=== PATIENT | female | born 1950 | race Caucasian/White ===

== ENCOUNTER 2025-01-29 16:20 | Inpatient (IN) | payer MEDICARE, MEDICAID ==
[~2025-01-29] VITALS: Ht 167.6 cm; Wt 60.0 kg
--- NOTE | 2025-01-29 16:37 | Physician Documentation ---
History of Present Illness General Chief Complaint: Weakness Stated Complaint: ALOC Time Seen by MD: 16:36 Primary Medical Doctor: Dr. Flores History of Present Illness Initial Comments The patient is a 74-year-old female who states she fell in the past and she has become weak and slightly short of breath, the patient was brought in EM by EMS who states that the patient has had three weeks of cognitive decline and was found in a bed of urine at her living facility. The patient does not complain of any pain she does complain of some slight shortness of breath she is not complain of any urinary symptoms the patient is unable to give any additional significant history she does not recall when she fell and she states she has no pain. Medication Reconciliation Allergies: Coded Allergies: No Known Allergies (Unverified , 04/20/09) Review of Systems All Other Systems at this time: Reviewed and Negative Physical Exam Physical Exam Vital Signs: Temperature: 97.7, Source: Axillary, Heart Rate: 80, Respiratory Rate: 16, BP: 110/56, Pulse Oximetry: 97, Weight: 60.000 Oxygen Flow Rate: 0 Physical Exam VITALS: Reviewed and as above. GENERAL: Alert, no apparent distress. HEENT: Normocephalic, atraumatic, PERRL, EOMI, dry mucosa, no erythema RESPIRATORY: Lungs clear, normal breath sounds, no respiratory distress. CHEST: No accessory muscle use, no retractions CV: Regular rate, rhythm, no edema, no murmur, No: JVD GI: Soft, non-tender, bowels sounds present, no rebound, guarding, or rigidity BACK: No CVA tenderness, or swelling MUSCULOSKELETAL: No deformities, no edema SKIN: Warm and dry, no rash NEURO: The patient is oriented to month and she believes she is at the other hospital in town she is essentially alert and oriented x2 not able to provide significant comprehensive history., No motor or sensory deficit she has a move all extremities PSYCH: Normal mood and affect, no agitation Progress Progress Note 1931: [facility]. Results/Orders Results/Orders Orders - JEFFREY YODER MD Hospitalist (01/29/25 19:32) Fill Out Med Reconciliation (01/29/25 19:32) Completed Orders - JEFFREY YODER MD Potassium Cl Sr Tablet (K-Dur Tablet) (01/29/25 19:29) Sodium Chloride Tablet (Sodium Chloride (01/29/25 19:30) Ceftriaxone/E0e-Dswdvhwm 1gm (Rocephin 1 (01/29/25 19:35) Medications Received in ER Medications (Trade) Dose Ordered Sig/Sara Route PRN Reason Start Time Stop Time Status Last Admin Dose Admin (0.9% sodium chloride (NS) 1000ml IV soln) 1,000 ml ONCE ONCE IVB 01/29/25 17:20 01/29/25 17:21 DC 01/29/25 17:36 1,000 ML Vital Signs 01/29/25 01/29/25 01/29/25 16:25 17:56 18:28 Temp 97.7 97.7 Pulse 80 71 Resp 16 15 16 B/P (MAP) 110/56 117/64 (81) Pulse Ox 97 98 O2 Flow Rate 0 0 Laboratory Tests Test 01/29/25 16:43 01/29/25 17:46 01/29/25 17:51 01/29/25 18:20 White Blood Count 8.2 Red Blood Count 3.91 L Hemoglobin 11.0 L Hematocrit 31.5 L Mean Corpuscular Volume 80.7 Mean Corpuscular Hemoglobin 28.2 Mean Corpuscular Hemoglobin Concent 34.9 Red Cell Distribution Width 13.6 Platelet Count 321 Mean Platelet Volume 6.1 L Neutrophils (%) (Auto) 83.7 H Lymphocytes (%) (Auto) 6.7 L Monocytes (%) (Auto) 8.6 Eosinophils (%) (Auto) 0.9 Basophils (%) (Auto) 0.1 Neutrophils # (Auto) 6.9 Lymphocytes # (Auto) 0.5 L Monocytes # (Auto) 0.7 Eosinophils # (Auto) 0.1 Basophils # (Auto) 0.0 CBC Comment Chemistry Comments Sodium Level 117 *L Potassium Level 2.9 *L Chloride Level 79 L Carbon Dioxide Level 27.2 Anion Gap 11 Blood Urea Nitrogen 23 H Creatinine 1.01 H Estimated GFR/1.73 m2 53 BUN/Creatinine Ratio 22.8 H Glucose Level 138 H Calcium Level 9.5 Magnesium Level 1.5 Total Bilirubin 1.2 H Aspartate Amino Transf (AST/SGOT) 16 Alanine Aminotransferase (ALT/SGPT) 11 L Alkaline Phosphatase 97 Total Protein 6.2 L Albumin 2.7 L Globulin 3.5 Albumin/Globulin Ratio 0.8 L Lipase 61 Procalcitonin < 0.05 Glucometer 144 H Urine Specimen Description Non-specified Urine Color Straw Urine Clarity Cloudy Urine pH 6.5 Urine Specific [place] <=1.005 Urine Protein Negative Urine Glucose (UA) Negative Urine Ketones Negative Urine Occult Blood Trace-intact Urine Nitrite Positive H Urine Bilirubin Negative Urine Urobilinogen 0.2 Urine Leukocyte Esterase Large H Urine RBC 3-10 Urine WBC 50-100 H Urine Squamous Epithelial Cells Few Urine Bacteria 4+ Urine Culture Indicated Indicated Volume Urine Centrifuged 10 ml Urine Comment Microbiology Date/Time Source Procedure Growth Status 01/29/25 18:56 Urine Nonspecified Urine Culture - Preliminary Culture received. Resulted Medical Decision Making Additional information obtaine: old records Findings Patient presents to the emergency room with weakness that has per HPI. Differentials include but are not limited to acute kidney injury, electrolyte disturbances, metabolic encephalopathy, urinary tract infection therefore emergent labs ordered which do show electrolyte disturbances that has well as urinary tract infection. Supplementation has been initiated and Rocephin administered. Although she has emergently low electrolytes her vital signs are stable and I do not feel she requires ICU admission. Differential Diagnosis g Departure Time of Disposition: 19:31 Disposition: 09 ADMITTED INPATIENT Admitted to Inpatient Unit: yes, to hospitalist Impression: Primary Impression: UTI (urinary tract infection) Additional Impressions: Metabolic encephalopathy Hypokalemia Hyponatremia Referrals: NO PRIMARY CARE PROVIDER (PCP) Signature Scribe Signature: Scribed for Jeffrey Yoder MD by Nae Hurd . 01/29/25 19:32 Attestation: The note accurately reflects work and decisions made by me.Jeffrey Yoder MD 01/29/25 20:15 SAHIL CARLOS MD Jan 29, 2025 16:37 NAE LEVIN Jan 29, 2025 19:33 JEFFREY YODER MD Jan 29, 2025 20:15
[2025-01-29 17:10] LABS: MEAN PLATELET VOLUME 6.1 FL (7.4-10.4); RED CELL DISTRIBUTION WIDTH 13.6 % (11.5-14.5)
[2025-01-29] MEDS: normal saline 1000ML IV soln IVB ONE (17:36)
--- NOTE | 2025-01-29 17:45 | RADIOLOGY REPORT ---
CLINICAL HISTORY: sob TECHNIQUE: Single view of the chest was obtained. COMPARISON: None FINDINGS: The heart size and pulmonary vasculature are normal. Elevation of the left hemidiaphragm with mild left basilar atelectasis. There are atherosclerotic calcifications at the aortic arch IMPRESSION: NO ACUTE CARDIOPULMONARY PROCESS.
[2025-01-29 18:26] LABS: CREATININE 1.01 MG/DL (0.40-0.90); TOTAL CARBON DIOXIDE 27.2 MMOL/L (24-32); eCRCL 44 ML/MIN; eGFR 53 ML/MIN
[2025-01-29 18:49] LABS: LEUKOCYTE ESTERASE ,URINE LARGE (Neg); NITRITES, URINE POSITIVE (Neg); OCCULT BLOOD,URINE TRACE-INTACT (Neg)
[2025-01-29 18:54] LABS: UA COLLECTION TYPE NON-SPECIFIED
[2025-01-29 18:56] LABS: SQUAMOUS EPITHELIAL CELL,UR FEW /LPF (FEW)
[2025-01-29] MEDS ORDERED: ondansetron/PF 4mg/2ml inj IV PRN (20:35)
[2025-01-29] MEDS ORDERED: magnesium hydroxide 30ml (MOM) UD suspension PO PRN (20:35)
[2025-01-29] MEDS ORDERED: potassium Cl 20 mEq SR tablet PO PRN ×2 (20:35)
[2025-01-29] MEDS ORDERED: magnesium sulf-water 2g/50mL 50 ML IV PRN (20:35)
[2025-01-29] MEDS ORDERED: ondansetron 4mg rapidly disintigrating tab PO PRN (20:35)
[2025-01-29] MEDS ORDERED: mag hydrox/Alum hydrox/simeth 30ml oral suspension PO PRN (20:35)
[2025-01-29] MEDS ORDERED: magnesium sulf-water 4G/100mL 100 ML IV PRN (20:35)
[2025-01-29] MEDS ORDERED: magnesium Cl slow-release 64mg tablet PO PRN (20:35)
[2025-01-29] MEDS ORDERED: morphine 4 MG/ML inj SYRINge IV PRN ×2 (20:35)
[2025-01-29] MEDS: CefTRIAXone/D5W-Rocephin 1gm 50 ML IV ONE (20:37)
[2025-01-29] MEDS: potassium Cl 20 mEq SR tablet PO STA (20:37)
--- NOTE | 2025-01-29 20:55 | ELECTROCARDIOGRAPH REPORT ---
[facility] Test Date: 2025-01-29 Test Time: 20:54:54 Pat Name: MOISES CABRAL Department: [facility]- Patient ID: [facility]-[id number] Room: [place] [address] Gender: F [employer] [place]: : 1950 Requested By: LARISA BLEDSOE Order Number: [id number] Reading MD: Dr. Juliano Suazo Measurements Intervals [place] Rate: 85 P: 59 LA: 163 QRS: 30 QRSD: 104 T: 74 QT: 418 QTc: 497 Interpretive Statements Sinus rhythm Abnormal R-wave progression, early transition Borderline prolonged QT interval Electronically Signed On 01-31-2025 21:14:[address] Juliano Suazo Please click the below link to view image of tracing.
[2025-01-29] MEDS: potassium Cl 40MEQ/1/2NS 520ml 520 ML IV PRN (21:33)
[2025-01-29 21:40] LABS: INR 1.1 INR
--- NOTE | 2025-01-29 21:45 | HISTORY AND PHYSICAL-Residence ---
History & Physical Providers to CC Resident Creating Document: JUAN RAMON BLEDSOE, RES ~ History of Present Illness Primary Medical Doctor: Dr. Flores Reason for Admit\Complaint: Altered level of consciousness History of Present Illness 74 years old female with unknown past medical is admitted to ED with altered level of consciousness Per ED The patient is a 74-year-old female who states she fell in the past and she has become weak and slightly short of breath, the patient was brought in EM by EMS who states that the patient has had three weeks of cognitive decline and was found in a bed of urine at her living facility. The patient does not complain of any pain she does complain of some slight shortness of breath she is not complain of any urinary symptoms the patient is unable to give any additional significant history she does not recall when she fell and she states she has no pain. Patient is overall very poor historian and we tried to contact her son but it was unsuccessful Allergies: Coded Allergies: No Known Allergies (Unverified , 04/20/09) Home Medications Home Medications Active Past Medical History Past Medical History Patient is a poor historian, we tried to contact with her son but did was unsuccessful and we will try to contact again in a.m. to get patient past history and home medications Past Surgical History Surgical History Comment Patient is a poor historian Past Social History Social History Comment Patient is confused and overall a poor historian we tried to contact her son but was unsuccessful ROS All Other Systems: Reviewed and Negative Unable to obtain: altered mental status, dementia Exam Vitals: Vital Signs Date Time Temp Pulse Resp B/P (MAP) Pulse Ox O2 Delivery O2 Flow Rate FiO2 01/29/25 20:37 78 17 126/68 (87) 98 0 01/29/25 18:28 97.7 General: Awake ,oriented to Name,Place,Time and mild confused HEENT: Atraumatic, normocephalic, EOMI, anicteric sclera ; pink conjunctiva Neck: Trachea midline. Supple, full range of motion, no JVD Cardiac: Regular rhythm, regular rate with no murmurs all over the precordium, Respiratory: Equal breath sounds bilaterally, no tachypnea, no wheezing ,rub or rales,bowel sounds are heard in left chest ,Chest wall is symmetric and without deformity. Gastrointestinal: Abdomen symmetric, non-distended, soft, non-tender, normal bowel sounds x4 quadrant, normoactive, no hepatosplenomegaly Neurological: Mental status exam: Alert and slightly confused but follows commands - Cranial nerve test: Cranial nerves 2-12 intact - Motor system: Strength normal in bilateral upper extremity and 4/5 in right lower extremity and decreased strength in left lower extremity 2/5 - Sensory system: Intact - Reflex testing: Biceps, triceps and knee reflexes 2+ - Cerebellar: Normal Skin: Warm and dry Extremities : No Edema, peripheral pulses felt, No deformities Psychiatric:Appropriate mood and affect Diagnostic Data Last Recorded Lab Results: 01/29/25 1643 01/29/25 1746 Diagnostic Data: Laboratory Tests Test 01/29/25 21:13 Coagulation Comments Advance Care Planning Advanced Care plannin - 30 Minutes Additional Plan 74 years old female with unknown past medical he is currently evaluated for altered level of consciousness Acute metabolic encephalopathy likely 2/2 Urinary tract infection vs Electrolyte abnormality Hyponatremia Hypokalemia Vitals are stable, EKG-normal In ED patient received 1 L normal saline bolus Initially Sodium 117, potassium-2.9, BUN 23, creatinine 1.01, BUN/creatinine- 22.8 , glucose-138 Follow up sodium shows 120, 22 Urinalysis-+4 bacteria, WBC 50-100, leukocyte esterase-positive, urine nitrites- positive Patient received 1 dose of IV ceftriaxone 1 g in ED, will continue IV ceftriaxone 1 g daily from tomorrow Patient is on hypokalemia hyperkalemia protocol Follow up with serum sodium, urine osmolality to guide treatment Monitor CMP q.4h, follow up with daily labs Protein malnutrition Albumin-2.7, Started ensure and live Prerenal acute kidney injury-mild BUN-23, creatinine 1.01 BUN/creatinine-22.8 Patient is already on maintenance fluids Follow up with spot urine studies Code Status: Full by default DVT prophylaxis: SCDs, heparin Analgesia/Sedation: Morphine Line/tube: Peripheral PT: Ordered Prognosis: Guarded Disposition: Patient will be monitored in PCU with telemetry, we tried to contact his son but was unsuccessful and a trying to get patient records from her facility i saw and discussed the care of this patient with the resident team and agree with assessment and plan Juan Ramon Bledsoe PGY1-Internal Medicine Resident Date of Service: Jan 29, 2025 Billing Provider: KENNETH LERMA MD, SATISH, RES Jan 29, 2025 21:45 KENNETH LERMA MD Jan 30, 2025 04:49
[2025-01-29 21:50] LABS: CREATININE,URINE RANDOM 10.0 MG/DL; TOTAL PROTEIN,URINE RANDOM 8.2 MG/DL
[2025-01-29 21:54] LABS: OSMOLALITY 258 MOSM/K (280-300)
[2025-01-29] MEDS: normal saline 1000ml 1,000 ML IV SCH (22:20)
[2025-01-29 22:22] LABS: CREATININE 1.03 MG/DL (0.40-0.90); TOTAL CARBON DIOXIDE 25.4 MMOL/L (24-32); eCRCL 44 ML/MIN; eGFR 52 ML/MIN
[2025-01-29 23:07] LABS: UA EOSINOPHILS MOD EOS /HPF
[2025-01-29 23:30] VITALS: BP 154/110; PULSE 81; RESP 18; TEMP 97.3; O2SAT 98
[2025-01-30] VITALS (10 sets, daily range): BP systolic 94–198; BP diastolic 33–78; PULSE 68–108; RESP 13–26; TEMP 96.9–98.8; O2SAT 93–99
[2025-01-30] MEDS: hydrocortisone 1% cream 28gm TP ONE (01:04)
[2025-01-30 02:04] LABS: CREATININE 0.99 MG/DL (0.40-0.90); TOTAL CARBON DIOXIDE 26.5 MMOL/L (24-32); eCRCL 45 ML/MIN; eGFR 55 ML/MIN
[2025-01-30 02:14] LABS: MEAN PLATELET VOLUME 6.2 FL (7.4-10.4); RED CELL DISTRIBUTION WIDTH 13.8 % (11.5-14.5)
[2025-01-30 07:12] LABS: CREATININE 0.98 MG/DL (0.40-0.90); TOTAL CARBON DIOXIDE 25.0 MMOL/L (24-32); eCRCL 46 ML/MIN; eGFR 55 ML/MIN
[2025-01-30] MEDS: CefTRIAXone/D5W-Rocephin 1gm 50 ML IV SCH (07:27)
[2025-01-30] MEDS: heparin, porcine 5000 units/ml vial SQ SCH (07:28)
[2025-01-30] MEDS: docusate sod 100mg capsule PO SCH (07:37)
[2025-01-30] MEDS: K and/or MAG REPLACEMENT MC SCH (07:37)
[2025-01-30] MEDS: Ensure Enlive - 237ML PO SCH (08:00)
[2025-01-30] MEDS: hydrocortisone 1% cream 28gm TP SCH (08:00)
[2025-01-30] MEDS ORDERED: iohexol 300mg/ml 100ml inj. ONE (09:51)
[2025-01-30 10:13] LABS: CREATININE 0.97 MG/DL (0.40-0.90); TOTAL CARBON DIOXIDE 25.6 MMOL/L (24-32); eCRCL 46 ML/MIN; eGFR 56 ML/MIN
--- NOTE | 2025-01-30 11:20 | RADIOLOGY REPORT ---
CLINICAL HISTORY: Mental status change. TECHNIQUE: Helical scanning was performed of the head from the skull base to the vertex. Multiplanar reconstructions were performed. This exam was performed according to our departmental dose optimization program. Up-to-date CT equipment and radiation dose reduction techniques are utilized as appropriate. CTDI 69 DLP 1166 COMPARISON: None FINDINGS: There is no evidence for acute intracranial hemorrhage, acute ischemic changes, mass, mass effect, or extra-axial fluid collection. There is no hydrocephalus or midline shift. There is no effacement of the cerebral sulci and basal subarachnoid cisterns. The maddox-white matter differentiation is well maintained. There is mild brain volume loss and minimal chronic small vessel ischemic change. There are old right basal ganglia /thalamic lacunar infarcts The imaged paranasal sinuses are clear. IMPRESSION: NO ACUTE INTRACRANIAL ABNORMALITY SEEN.
--- NOTE | 2025-01-30 13:21 | RADIOLOGY REPORT ---
INDICATION: Diaphramatic hernia TECHNIQUE: CT axial images of the chest, abdomen and pelvis are obtained with intravenous contrast. Coronal and sagittal reformats were obtained. Radiation Dose Information: CTDI volume is 11 mGy. Dose-length product is 894 mGy*cm COMPARISON: Chest radiograph from 01/29/2025 FINDINGS: Examination degraded by motion artifact especially in the mid to lower abdomen, pelvis. The trachea is patent. No pneumothorax. Bilateral atelectasis. Left lower lobe consolidation. Heart normal in size. Coronary artery calcification disease. Aortic atherosclerotic disease. Multiple bilateral thyroid nodules as well as thyroid isthmus nodules. No supraclavicular, axillary lymphadenopathy. Left adrenal gland limb thickening measuring 2.2 cm. Spleen, pancreas unremarkable cholelithiasis. Subcentimeter hepatic hypodensities, too small to characterize statistically likely representing cysts. Moderate to severe bilateral hydroureteronephrosis. There is a large left diaphragmatic hernia containing the entirety of the stomach, transverse colon. Small bowel loops are grossly normal in caliber. Moderate volume stool in the large bowel. The appendix is not well characterized. Abdominal aortic atherosclerotic disease. Marked bladder distention. Fracture of the right pubic ramus with underlying sclerotic/ lytic appearance. There is soft tissue edema / stranding within the adjacent musculature. Acute/ subacute bilateral sacral fractures. There is underlying sacral sclerosis. Presacral edema Severe lumbar degenerative disc disease. Sclerotic changes at L3 through L5. Lumbar dextrocurvature. IMPRESSION: Large left diaphragmatic hernia containing nearly the entirety of the stomach. There is also a large portion of the transverse colon within the hernia. Moderate to severe bilateral hydroureteronephrosis. Marked bladder distention. Correlate for a bladder outlet obstruction and other etiologies. Fracture right pubic ramus with underlying sclerosis/lytic appearance and surrounding soft tissue edema and stranding /soft tissue density, possibly pathological fracture. Acute/ subacute bilateral sacral ala fractures with sclerotic appearance which could represent sequela of the fracture, metastatic disease. Sclerotic changes at L3 through L5 which could represent sequela of degenerative disc disease, osteoblastic metastatic disease. Cholelithiasis Tiny bilateral pleural effusions. Other findings as described.
[2025-01-30 13:29] LABS: CREATININE 0.98 MG/DL (0.40-0.90); TOTAL CARBON DIOXIDE 24.8 MMOL/L (24-32); eCRCL 46 ML/MIN; eGFR 55 ML/MIN
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
[2025-01-30 17:24] LABS: CREATININE 0.98 MG/DL (0.40-0.90); TOTAL CARBON DIOXIDE 26.1 MMOL/L (24-32); eCRCL 46 ML/MIN; eGFR 55 ML/MIN
[2025-01-30] MEDS ORDERED: OMEP40CA21 PO (19:55)
[2025-01-30] MEDS ORDERED: ESOM40CA66 PO (19:55)
[2025-01-30] MEDS ORDERED: PALI410S IM (19:55)
[2025-01-31] VITALS (8 sets, daily range): BP systolic 111–175; BP diastolic 62–76; PULSE 61–90; RESP 12–22; TEMP 97.3–98; O2SAT 94–98
[2025-01-31 00:50] LABS: CREATININE 0.93 MG/DL (0.40-0.90); TOTAL CARBON DIOXIDE 27.5 MMOL/L (24-32); eCRCL 48 ML/MIN; eGFR 59 ML/MIN
[2025-01-31] MEDS ORDERED: POTASSIUM BICARBONATE/CIT AC 10 MEQ TABLET.EFF PO PRN (01:40)
[2025-01-31] MEDS ORDERED: POTASSIUM BICARB 20meq eff tab 20 MEQ TABLET.EFF PO PRN ×2 (01:40)
[2025-01-31 04:51] LABS: UA COLLECTION TYPE STRAIGHT CATH
[2025-01-31 04:53] LABS: NITRITES, URINE NEGATIVE (Neg); OCCULT BLOOD,URINE LARGE (Neg)
[2025-01-31 04:55] LABS: LEUKOCYTE ESTERASE ,URINE LARGE (Neg)
[2025-01-31 05:04] LABS: URINE AMPHETAMINE SCREEN NEGATIVE (Neg); URINE BARBITUATE SCREEN NEGATIVE (Neg); URINE BENZODIAZEPINES SCREEN NEGATIVE (Neg); URINE CANNABINOID SCREEN NEGATIVE (Neg); URINE COCAINE SCREEN NEGATIVE (Neg); URINE METHADONE SCREEN NEGATIVE (Neg); URINE OPIATE SCREEN NEGATIVE (Neg); URINE PHENCYCLIDINE SCREEN NEGATIVE (Neg)
[2025-01-31 05:11] LABS: SQUAMOUS EPITHELIAL CELL,UR FEW /LPF (FEW)
[2025-01-31 07:51] LABS: MEAN PLATELET VOLUME 5.9 FL (7.4-10.4); RED CELL DISTRIBUTION WIDTH 13.8 % (11.5-14.5)
[2025-01-31 08:01] LABS: CREATININE 0.80 MG/DL (0.40-0.90); TOTAL CARBON DIOXIDE 28.4 MMOL/L (24-32); eCRCL 56 ML/MIN; eGFR 70 ML/MIN
[2025-01-31 09:44] LABS: CREATININE 0.87 MG/DL (0.40-0.90); TOTAL CARBON DIOXIDE 27.3 MMOL/L (24-32); eCRCL 52 ML/MIN; eGFR 63 ML/MIN
[2025-01-31] MEDS ORDERED: POTASSIUM CHLORIDE 20 MEQ/15 ML oral solution PO PRN (10:51)
[2025-01-31 13:50] LABS: CREATININE 0.95 MG/DL (0.40-0.90); TOTAL CARBON DIOXIDE 28.5 MMOL/L (24-32); eCRCL 47 ML/MIN; eGFR 57 ML/MIN
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
[2025-01-31 18:18] LABS: CREATININE 0.87 MG/DL (0.40-0.90); TOTAL CARBON DIOXIDE 29.4 MMOL/L (24-32); eCRCL 52 ML/MIN; eGFR 63 ML/MIN
[2025-01-31] MEDS ORDERED: docusate sodium 100mg/10ml UD cup PO SCH (19:40)
[2025-01-31] MEDS: docusate sodium 100mg/10ml UD cup PO SCH (20:03)
[2025-01-31] MEDS: normal saline 1000ml 1,000 ML IV SCH (20:03)
[2025-01-31] MEDS: POTASSIUM CHLORIDE 20 MEQ/15 ML oral solution PO PRN (20:04)
[2025-01-31 21:56] LABS: CREATININE 0.95 MG/DL (0.40-0.90); TOTAL CARBON DIOXIDE 27.9 MMOL/L (24-32); eCRCL 47 ML/MIN; eGFR 57 ML/MIN
[2025-02-01] VITALS (9 sets, daily range): BP systolic 123–196; BP diastolic 63–93; PULSE 71–124; RESP 12–19; TEMP 96.8–98.4; O2SAT 94–99
[2025-02-01] MEDS: hydrALAZINE 20mg/ml inj. IV ONE (02:42)
[2025-02-01 05:04] LABS: MEAN PLATELET VOLUME 6.1 FL (7.4-10.4); RED CELL DISTRIBUTION WIDTH 14.5 % (11.5-14.5)
[2025-02-01 05:19] LABS: CREATININE 0.80 MG/DL (0.40-0.90); TOTAL CARBON DIOXIDE 28.7 MMOL/L (24-32); eCRCL 56 ML/MIN; eGFR 70 ML/MIN
[2025-02-01] MEDS: multivitamins, therapeutics tablet PO SCH (08:49)
[2025-02-01] MEDS: hydrALAZINE 20mg/ml inj. IV PRN (11:55)
--- NOTE | 2025-02-01 14:45 | PROGRESS NOTE- Residence ---
Progress Note - Resident Providers to CC Resident Creating Document: PABLO CHAPMAN RES ~ Antibiotic Timeout Antibiotic Ordered?: Yes Subjective Patient seen and examined at the bedside, he reported he feels good denied any shortness of breaths abdominal pain or any new complaint Objective Vital Signs Date Time Temp Pulse Resp B/P (MAP) Pulse Ox O2 Delivery O2 Flow Rate FiO2 02/01/25 11:55 114 02/01/25 08:00 15 95 Room Air 02/01/25 03:39 159/76 (103) 02/01/25 02:00 97.3 01/31/25 08:00 0.0 Result Diagram: 02/01/25 0431 02/01/25 043 General: Awake and Alert, no acute distress. HEENT: Conjunctiva pink, Sclera clear, Mucus Membranes moist. Neck: Supple without masses and tenderness. Resp: Lungs clear to auscultation bilaterally. Heart: Regular Rate and rhythm, normal S1 and S2 Abdomen: Soft and non tender Extremities: No cyanosis,clubbing or edema. Skin: Maculopapular rash on the back has been improving Neurological: Speech is clear, alert, and oriented to person and place, no gross neurological deficits Head, bilateral hand tremor Coagulation Studies Laboratory Tests Test 01/29/25 21:13 Prothrombin Time 11.6 SECONDS (9.0-12.0) INR International Normalized Ratio 1.1 INR Coagulation Comments Plan Plan 74 years old female brought to the ED due to confusion and history of multiple mechanical fall Acute Metabolic Encephalopathy Secondary to UTI Sepsis POA Patient mentation is improving. Procal normal CT Head: NO ACUTE INTRACRANIAL ABNORMALITY SEEN. UA suggestive of UTI On ceftriaxone 1 g day 4 IV daily, culture mixed octavia, blood culture negative Hypovolemic Hypotonic Hyponatremia Serum osmolality 258 which suggests hypotonic. Urine < 15, which suggest cause of hyponatermia extra renal, likely secondary to dehydration in this patient. Na on POA 117, 129 now Received 1 L of NS in ER and 1 g of Na tablet, She was on NS 75 ml/hr which has been dced. 02/01/2025: We will continue hydrating patient with NS 50 mL/hour Acute kidney injury likely secondary to dehydration: improving Moderate to severe bilateral hydroureteronephrosis. CT shows moderate to severe bilateral hydroureternephrosis Bladder scan showed 1145, straight cath, if she continues to retain place foleys . Asymptomatic Cholelithiasis CT scan of abdomen suggestive of cholelithiasis. Patient is asymptomatic. Fracture right pubic ramus possibly pathologic Sclerotic changes at L3 through L5 CT scan show sclerotic changes at L3 through L5 with sclerotic appearnce which could represent sequele of fracture, metastatic disease.Fracture right pubic ramus with underlying sclerosis/lytic appearance and surrounding soft tissue edema and stranding /soft tissue density, possibly pathological fracture. She needs to follow up outpatient. Pain meds as needed. Weight-bearing as tolerated Normocytic Normochromic Anaemia likely Nutritional Hgb: 10.9, Hct 31.3: Stable Low iron, normal transferring, high ferritin Code Status: Full Code Dvt prophylaxis: Heparin subcu PT :Ordered Dispostion: Continue monitoring patient, patient Na is improving, possbile discharge tomorrow, accepted by rehab Date of Service: Feb 01, 2025 Billing Provider: KHADRA KHAN MD, ELAHE, RES Feb 01, 2025 14:45
[2025-02-01 17:42] LABS: CREATININE 0.85 MG/DL (0.40-0.90); TOTAL CARBON DIOXIDE 28.2 MMOL/L (24-32); eCRCL 53 ML/MIN; eGFR 65 ML/MIN
[2025-02-02 02:00] VITALS: BP 166/73; PULSE 108; RESP 15; TEMP 97.4; O2SAT 95
[2025-02-02 07:31] LABS: MEAN PLATELET VOLUME 5.9 FL (7.4-10.4); RED CELL DISTRIBUTION WIDTH 14.2 % (11.5-14.5)
[2025-02-02 08:00] VITALS: RESP 16; O2SAT 99
[2025-02-02 08:06] LABS: CREATININE 0.83 MG/DL (0.40-0.90); TOTAL CARBON DIOXIDE 28.0 MMOL/L (24-32); eCRCL 54 ML/MIN; eGFR 67 ML/MIN
--- NOTE | 2025-02-02 17:02 | DISCHARGE SUMMARY-Residence ---
Discharge Summary Providers to CC Resident Creating Document: PABLO CHAPMAN RES ~ Discharge Summary Admission Diagnosis: Metabolic encephalopathy,Hyponatermia,Hypokalemia,AILEEN,UTI Hospital Course DATE OF ADMISSION: DATE OF DISCHARGE: Hospital course: 74 years old female brought to the ED due to confusion and history of multiple mechanical fall. Patient admitted with following workup and treatment Acute Metabolic Encephalopathy Secondary to UTI Sepsis POA Patient mentation is improving. Procal normal CT Head: NO ACUTE INTRACRANIAL ABNORMALITY SEEN. UA suggestive of UTI On ceftriaxone 1 g IV daily, culture mixed octavia, blood culture negative Hypovolemic Hypotonic Hyponatremia Serum osmolality 258 which suggests hypotonic. Urine < 15, which suggest cause of hyponatermia extra renal, likely secondary to dehydration in this patient. Sodium gradually improved with hydration Acute kidney injury likely secondary to dehydration: improving Moderate to severe bilateral hydroureteronephrosis. CT shows moderate to severe bilateral hydroureternephrosis Asymptomatic Cholelithiasis CT scan of abdomen suggestive of cholelithiasis. Patient is asymptomatic. Fracture right pubic ramus possibly pathologic Sclerotic changes at L3 through L5 CT scan show sclerotic changes at L3 through L5 with sclerotic appearnce which could represent sequele of fracture, metastatic disease.Fracture right pubic ramus with underlying sclerosis/lytic appearance and surrounding soft tissue edema and stranding /soft tissue density, possibly pathological fracture. She needs to follow up outpatient. Pain meds as needed. Weight-bearing as tolerated Normocytic Normochromic Anaemia likely Nutritional Hgb: 10.9, Hct 31.3: Stable Low iron, normal transferring, high ferritin Chest abdomen pelvic CT scan: Large left diaphragmatic hernia containing nearly the entirety of the stomach. There is also a large portion of the transverse colon within the hernia. Moderate to severe bilateral hydroureteronephrosis. Marked bladder distention. Correlate for a bladder outlet obstruction and other etiologies. Fracture right pubic ramus with underlying sclerosis/lytic appearance and surrounding soft tissue edema and stranding /soft tissue density, possibly pathological fracture. Acute/ subacute bilateral sacral ala fractures with sclerotic appearance which could represent sequela of the fracture, metastatic disease. Sclerotic changes at L3 through L5 which could represent sequela of degenerative disc disease, osteoblastic metastatic disease. Cholelithiasis Tiny bilateral pleural effusions. Laboratory Tests Test 01/31/25 21:28 02/01/25 04:31 02/01/25 17:16 02/02/25 06:50 Sodium Level 130 MMOL/L 133 MMOL/L 131 MMOL/L 134 MMOL/L Potassium Level 3.8 MMOL/L 3.8 MMOL/L 3.5 MMOL/L 3.4 MMOL/L Chloride Level 96 MMOL/L 98 MMOL/L 98 MMOL/L 100 MMOL/L Carbon Dioxide Level 27.9 MMOL/L 28.7 MMOL/L 28.2 MMOL/L 28.0 MMOL/L Anion Gap 6 6 5 6 Blood Urea Nitrogen 13 MG/DL 11 MG/DL 10 MG/DL 9 MG/DL Creatinine 0.95 MG/DL 0.80 MG/DL 0.85 MG/DL 0.83 MG/DL Estimated GFR/1.73 m2 57 ML/MIN 70 ML/MIN 65 ML/MIN 67 ML/MIN BUN/Creatinine Ratio 13.7 13.8 11.8 10.8 Glucose Level 168 MG/DL 149 MG/DL 149 MG/DL 127 MG/DL Calcium Level 9.8 MG/DL 10.0 MG/DL 9.6 MG/DL 9.7 MG/DL Total Bilirubin 0.3 MG/DL 0.4 MG/DL 0.3 MG/DL 0.3 MG/DL Aspartate Amino Transf (AST/SGOT) 13 U/L 14 U/L 18 U/L 9 U/L Alanine Aminotransferase (ALT/SGPT) 7 U/L 13 U/L 10 U/L 11 U/L Alkaline Phosphatase 76 IU/L 85 IU/L 78 IU/L 79 IU/L Total Protein 5.5 G/DL 6.0 G/DL 5.7 G/DL 5.6 G/DL Albumin 2.3 G/DL 2.6 G/DL 2.4 G/DL 2.4 G/DL Globulin 3.2 G/DL 3.4 G/DL 3.3 G/DL 3.2 G/DL Albumin/Globulin Ratio 0.7 0.8 0.7 0.8 Chemistry Comments White Blood Count 5.0 X10'3 4.8 X10'3 Red Blood Count 3.56 X10'6 3.24 X10'6 Hemoglobin 10.2 g/dl 9.3 g/dl Hematocrit 29.3 % 26.7 % Mean Corpuscular Volume 82.3 FL 82.4 FL Mean Corpuscular Hemoglobin 28.7 PG 28.6 PG Mean Corpuscular Hemoglobin Concent 34.8 g/dL 34.7 g/dL Red Cell Distribution Width 14.5 % 14.2 % Platelet Count 347 X10'3 323 X10'3 Mean Platelet Volume 6.1 FL 5.9 FL Neutrophils (%) (Auto) 77.9 % 67.6 % Lymphocytes (%) (Auto) 10.7 % 16.8 % Monocytes (%) (Auto) 8.6 % 12.4 % Eosinophils (%) (Auto) 2.5 % 2.6 % Basophils (%) (Auto) 0.3 % 0.6 % Neutrophils # (Auto) 3.9 X10'3 3.3 X10'3 Lymphocytes # (Auto) 0.5 X10'3 0.8 X10'3 Monocytes # (Auto) 0.4 X10'3 0.6 X10'3 Eosinophils # (Auto) 0.1 X10'3 0.1 X10'3 Basophils # (Auto) 0.0 X10'3 0.0 X10'3 CBC Comment Physical exam on discharge day General: Awake and Alert, no acute distress. HEENT: Conjunctiva pale, Sclera clear, Mucus Membranes moist. Neck: Supple without masses and tenderness. Resp: Lungs clear to auscultation bilaterally. Heart: Regular Rate and rhythm, normal S1 and S2 Abdomen: Soft and non tender Extremities: No cyanosis,clubbing or edema. Skin: Maculopapular rash on the back has been improving Neurological: Speech is clear, alert, and oriented to person and place, no gross neurological deficits Head, bilateral hand tremor Patient stable for transfer to rehab [facility] Please follow-up with PCP after discharged, Continue cefdinir 300 b.i.d. for three more days, continue culture Weight-bearing as tolerated, continue follow up with rehabilitation construction specialist as an outpatient Keep yourself hydrated Discharge Diagnosis\Comment: Acute metabolic encephalopathy secondary to UTI cystitis Sepsis Hypovolemic hypotonic hyponatremia Acute kidney injury likely secondary to dehydration Asymptomatic cholelithiasis Fracture right pubis ramus possibly pathologic , Sclerotic change at L3 through L5 Normocytic normochromic anemia likely nutritional Operations\Procedures: none Consultants: none Complications: None Condition on DC: Stable for transfer Continued Medications: Esomeprazole Magnesium (Esomeprazole Magnesium) 40 Mg Capsule.dr 1 CAP PO DAILY Omeprazole (Prilosec) 40 Mg Capsule 1 CAP PO DAILY Paliperidone Palmitate (Invega Trinza) 410 Mg/1.32 Ml Syringe IM Discharge Summary: See hospital course *Problems/Diagnosis: (1) UTI (urinary tract infection) Status: Acute (2) Hyponatremia Status: Acute Total Time Spent on D/C: > 30 Minutes Date of Service: Feb 02, 2025 Billing Provider: KHADRA KHAN MD, ELAHE, RES Feb 02, 2025 17:02
[2025-02-02 18:00] VITALS: BP 147/54; PULSE 97; RESP 16; TEMP 97.6; O2SAT 95
== END 2025-02-02 21:48 | DRG 871 ==
LOC: ER 16:20 → ED HOLD 20:55 → PCU 3S 23:15
PROVIDERS: ADMIT Internal Medicine; ATTEND Family Medicine
PROC: BW251ZZ Computerized Tomography (CT Scan) of Chest, Abdomen and Pelvis using Low Osmolar Contrast (ICD-10-PCS; principal; 2025-01-30)
DX: A41.9 Sepsis, unspecified organism (principal); G93.41 Metabolic encephalopathy; E46 Unspecified protein-calorie malnutrition; D53.8 Other specified nutritional anemias; E86.0 Dehydration; N13.6 Pyonephrosis; S32.591A Other specified fracture of right pubis, initial encounter for closed fracture; N17.9 Acute kidney failure, unspecified; E87.1 Hypo-osmolality and hyponatremia; K80.80 Other cholelithiasis without obstruction; W18.39XA Other fall on same level, initial encounter; E87.6 Hypokalemia; Z68.21 Body mass index [BMI] 21.0-21.9, adult; Y93.89 Activity, other specified; Y92.89 Other specified places as the place of occurrence of the external cause; Y99.8 Other external cause status
CPT/HCPCS: 36415; 70450; 71045; 71260; 74177; 80048; 80053; 80305; 81001; 82570; 82728; 82948; 83540; 83605; 83690; 83735; 83930; 83935; 84132; 84133; 84145; 84156; 84295; 84300; 84443; 84466; 85025; 85610; 87040; 87081; 87088; 87207; 92508; 92616; 93005; 96365; 97110; 97161; 97530; 99285; A4338; A6209; A6212; A6213; A6250; A6258; A6449; C1758; G0378; J0360; J0696; J1644; J3480; J7030; J7040; J7070; Q9967